=== PATIENT | female | born 1990 | race Caucasian/White ===

== ENCOUNTER 2016-11-08 21:41 | Emergency (ER) | payer OTHER ==
[2016-11-08 22:01] VITALS: RESP 18
--- NOTE | 2016-11-08 22:04 | ED ---
Skin/Abscess/FB HPI - General Chief complaint: Skin/Abscess/Foreign Body Stated complaint: Facial Swelling Time Seen by Provider: 11/08/16 21:57 Source: patient, RN notes reviewed Mode of arrival: ambulatory Limitations: no limitations - History of Present Illness Initial comments: 26-year-old female presents emergency Department chief complaint of right sided face pain and swelling and redness. Patient states yesterday her face felt we are today she woke up and her eye was swollen shut. Patient states she has pain extending from the upper jaw all the way to the upper eyebrow. Patient stated hurts when she moves right eye. Patient is a falls traumas or injuries with this. Patient denies any fever chills. Patient states she was concerned due to the fact of her symptoms so she thought that she should be evaluated. Patient denies any recent fever, chills, shortness of breath, chest pain, back pain, abdominal pain, nausea vomiting, numbness or tingling, dysuria or hematuria, constipation or diarrhea, headaches or visual changes, or any other current symptoms. - Related Data Previous Rx's Medication Instructions Recorded Albuterol Sulfate [Proair Hfa] 1 - 2 puff INHALATION Q4H PRN #1 10/16/15 inhaler Amoxicillin 500 mg PO Q8H #30 capsule 10/16/15 Benzonatate [Tessalon Perles] 100 mg PO TID #30 cap 10/16/15 predniSONE 50 mg PO DAILY #5 tab 10/16/15 Clindamycin [Cleocin] 450 mg PO Q8HR #90 capsule 11/08/16 diphenhydrAMINE [Benadryl] 50 mg PO HS PRN #5 capsule 11/08/16 Allergies Allergy/AdvReac Type Severity Reaction Status Date / Time sulfamethoxazole Allergy Nausea & Verified 11/08/16 21:59 [From Bactrim] Vomiting & Diarrhea trimethoprim [From Bactrim] Allergy Nausea & Verified 11/08/16 21:59 Vomiting & Diarrhea doxycycline AdvReac Nausea & Verified 11/08/16 21:59 Vomiting & Diarrhea Review of Systems ROS Statement: Those systems with pertinent positive or pertinent negative responses have been documented in the HPI. ROS Other: All systems not noted in ROS Statement are negative. Past Medical History Past Medical History: Asthma Additional Past Medical History / Comment(s): ASTHMA A CHILD- EXERCISE INDUCED, JUST HAD BABY BOY 10/22/14 History of Any Multi-Drug Resistant Organisms: None Reported Past Surgical History: No Surgical Hx Reported Additional Past Anesthesia/Blood Transfusion Reaction / Comment(s): PT HAD PROBLEMS WITH EPIDERAL- MADE BP DROP,KEPT PASSING OUT Past Psychological History: Depression Smoking Status: Current every day smoker Past Alcohol Use History: None Reported Additional Past Alcohol Use History / Comment(s): STARTED SMOKING @ AGE 20(2009 ) 10 CIGARETTES A DAY Past Drug Use History: None Reported - Past Family History Mother Family Medical History: Cancer Additional Family Medical History / Comment(s): COLON CA Father Family Medical History: Diabetes Mellitus, Hyperlipidemia, Hypertension General Exam Limitations: no limitations General appearance: alert, in no apparent distress Head exam: Present: atraumatic, normocephalic. Absent: normal inspection ( patient appears to have erythema to the right side of the face surrounding the right eye and upper cheek. Tender to touch.) Eye exam: Present: normal appearance, PERRL, EOMI, conjunctival injection (On right side of face), periorbital swelling, periorbital tenderness. Absent: scleral icterus Pupils: Present: normal accommodation ENT exam: Present: normal exam, mucous membranes moist Expanded Teeth exam: Present: dental tenderness # (Along the right upper jaw). Absent: gingival enlargement Neck exam: Present: normal inspection. Absent: tenderness, meningismus, lymphadenopathy Respiratory exam: Present: normal lung sounds bilaterally. Absent: respiratory distress, wheezes, rales, rhonchi, stridor Cardiovascular Exam: Present: regular rate, normal rhythm, normal heart sounds. Absent: systolic murmur, diastolic murmur, rubs, gallop, clicks Neurological exam: Present: alert, oriented X3 Psychiatric exam: Present: normal affect, normal mood Skin exam: Present: warm, dry, intact, normal color. Absent: rash Course Vital Signs 11/08/16 21:56 Temperature 97.6 F Pulse Rate 94 Respiratory 18 Rate Blood Pressure 117/77 O2 Sat by Pulse 100 Oximetry Medical Decision Making - Medical Decision Making 26-year-old female presents emergency Department with a chief complaint of right eye swelling and pain. Patient's blood work is reviewed. Patient with lamp examination shows no injury to the exterior right eyeball. At this time ct shows facial cellulitis. We will start patient on clindamycin. We discussed follow-up with her doctor and return parameters and all her questions. She stated that she understood all questions have been answered. She will be discharged home. - Lab Data Result diagrams: 11/08/16 22:08 11/08/16 22:08 Lab Results 11/08/16 11/08/16 Range/Units 22:08 22:08 WBC 9.5 (3.8-10.6) k/uL RBC 4.93 (3.80-5.40) m/uL Hgb 15.5 (11.4-16.0) gm/dL Hct 46.5 H (34.0-46.0) % MCV 94.2 (80.0-100.0) fL MCH 31.5 (25.0-35.0) pg MCHC 33.5 (31.0-37.0) g/dL RDW 12.8 (11.5-15.5) % Plt Count 350 (150-450) k/uL Neutrophils % 59 % Lymphocytes % 31 % Monocytes % 3 % Eosinophils % 5 % Basophils % 1 % Neutrophils # 5.6 (1.3-7.7) k/uL Lymphocytes # 2.9 (1.0-4.8) k/uL Monocytes # 0.3 (0-1.0) k/uL Eosinophils # 0.5 (0-0.7) k/uL Basophils # 0.0 (0-0.2) k/uL Sodium 141 (137-145) mmol/L Potassium 4.3 (3.5-5.1) mmol/L Chloride 106 (98-107) mmol/L Carbon Dioxide 25 (22-30) mmol/L Anion Gap 10 mmol/L BUN 10 (7-17) mg/dL Creatinine 0.67 (0.52-1.04) mg/dL Est GFR (MDRD) Af Amer >60 (>60 ml/min/1.73 sqM) Est GFR (MDRD) Non-Af >60 (>60 ml/min/1.73 sqM) Glucose 97 (74-99) mg/dL Calcium 9.9 (8.4-10.2) mg/dL Total Bilirubin 0.4 (0.2-1.3) mg/dL AST 29 (14-36) U/L ALT 41 (9-52) U/L Alkaline Phosphatase 96 (38-126) U/L Total Protein 8.3 H (6.3-8.2) g/dL Albumin 4.9 (3.5-5.0) g/dL - Radiology Data Radiology results: report reviewed, image reviewed Disposition Clinical Impression: Facial cellulitis Disposition: HOME SELF-CARE Condition: Stable Instructions: Cellulitis (ED) Additional Instructions: Please use medication as discussed. Please follow up with family doctor if symptoms have not improved over the next two days. Please return to the emergency room if your symptoms increase or worsen or for any other concerns. Prescriptions: Clindamycin [Cleocin] 450 mg PO Q8HR #90 capsule diphenhydrAMINE [Benadryl] 50 mg PO HS PRN #5 capsule PRN Reason: Itching Referrals: Reagan Aldana MD [Primary Care Provider] - 1-2 days Time of Disposition: 22:59
[2016-11-08] MEDS ORDERED: KETOROLAC 30 MG/ML 1 ML VIAL IVP STA (22:11)
[2016-11-08 22:24] LABS: Basophils % (A) 1 %; CH 31.7; CHCM 33.8; Eosinophils # (A) 0.5 k/uL (0-0.7); Eosinophils % (A) 5 %; HCT 46.5 % (34.0-46.0); HDW 2.37; HGB 15.5 gm/dL (11.4-16.0); Luc # (Auto) 0.14; Luc % (Auto) 2; Lymphocytes # (A) 2.9 k/uL (1.0-4.8); Lymphocytes % (A) 31 %; MCH 31.5 pg (25.0-35.0); MCHC 33.5 g/dL (31.0-37.0); MCV 94.2 fL (80.0-100.0); Mean Platelet Volume 6.8; Monocytes # (A) 0.3 k/uL (0-1.0); Monocytes % (A) 3 %; Neutrophils # (A) 5.6 k/uL (1.3-7.7); Neutrophils % (A) 59 %; RBC 4.93 m/uL (3.80-5.40); RDW 12.8 % (11.5-15.5); WBC 9.5 k/uL (3.8-10.6); WBC (Perox) 8.97
[2016-11-08 22:34] LABS: ALT 41 U/L (9-52); AST 29 U/L (14-36); Alkaline Phosphatase 96 U/L (38-126); Anion Gap 10 mmol/L; Blood Urea Nitrogen 10 mg/dL (7-17); Calcium 9.9 mg/dL (8.4-10.2); Carbon Dioxide 25 mmol/L (22-30); Chloride 106 mmol/L (98-107); Glucose 97 mg/dL (74-99); Non-African American GFR(MDRD) >60 (>60 ml/min/1.73 sqM); Potassium 4.3 mmol/L (3.5-5.1); Sodium 141 mmol/L (137-145); Total Bilirubin 0.4 mg/dL (0.2-1.3); Total Protein 8.3 g/dL (6.3-8.2)
--- NOTE | 2016-11-08 22:54 | CT ---
EXAM: CT Maxillofacial Without Intravenous Contrast CLINICAL HISTORY: Reason: Pain. Right sided orbital and facial swelling starting today. No known injury. TECHNIQUE: Axial computed tomography images of the face without intravenous contrast. CTDI is 32.1 mGy and DLP is 738 mGy-cm. This CT exam was performed using one or more of the following dose reduction techniques: automated exposure control, adjustment of the mA and/or kV according to patient size, and/or use of iterative reconstruction technique. COMPARISON: No relevant prior studies available. FINDINGS: Bones/joints: No acute fracture. Soft tissues: Right facial soft tissue stranding with suggestion of mild haziness in the adjacent right parotid gland. Prominent lymph node in this region. No organized fluid collections. Orbits: Unremarkable. Submandibular/parotid glands: See above. Sinuses: Minimal sphenoid and maxillary sinus mucosal thickening. No air-fluid levels. IMPRESSION: Right facial soft tissue stranding with suggestion of mild haziness in the adjacent right parotid gland. Differential considerations include cellulitis, parotiditis, or other inflammatory/infectious process. Traumatic etiology is presumed less likely given no history of injury.
[2016-11-08] MEDS ORDERED: diphenhydrAMINE 50 MG/ML 1 ML VIAL IVP STA (23:00)
[2016-11-08] MEDS ORDERED: CLINDAMYCIN 150 MG CAP PO STA (23:00)
[2016-11-08] MEDS ORDERED: methylPREDNISolone SOD SUCCI 125 MG/2 ML VIAL IV STA (23:00)
[2016-11-08 23:48] VITALS: BP 129/81; PULSE 88; TEMP 99
== END 2016-11-08 23:48 | disposition home or self-care (01) ==
LOC: EC 21:41
DX: L03.211 Cellulitis of face (principal); F17.210 Nicotine dependence, cigarettes, uncomplicated; Z88.2 Allergy status to sulfonamides; Z88.1 Allergy status to other antibiotic agents
CPT/HCPCS: 36415; 80053; 85025; 87040; 70486; 99284; 96374; 96375 ×2; J1200; J2930; J1885

== ENCOUNTER 2016-11-10 11:07 | Emergency (ER) | payer OTHER ==
--- NOTE | 2016-11-10 12:30 | ED ---
General Adult HPI - General Chief complaint: Recheck/Abnormal Lab/Rx Stated complaint: Revisit facial swelling Time Seen by Provider: 11/10/16 12:17 Source: patient Mode of arrival: ambulatory Limitations: no limitations - History of Present Illness Initial comments: This 26-year-old white female presents with a complaint of some right facial swelling. This is been going on for several days. She states that she was seen in the emergency department 2 days ago. She states that she was diagnosed with cellulitis and placed on Benadryl as well as clindamycin. She had a computed tomography scan of her face at that time. This showed some inflammatory changes present to the right face with suspected parotiditis. She denies any relief of her symptomatology since last visit. She denies any dental pain. There's been no fever or chills. She does complain of some slight redness to her right eye. There's been no injuries are visual abnormalities. No other complaints or modifying factors. - Related Data Previous Rx's Medication Instructions Recorded Albuterol Sulfate [Proair Hfa] 1 - 2 puff INHALATION Q4H PRN #1 10/16/15 inhaler Amoxicillin 500 mg PO Q8H #30 capsule 10/16/15 Benzonatate [Tessalon Perles] 100 mg PO TID #30 cap 10/16/15 predniSONE 50 mg PO DAILY #5 tab 10/16/15 Clindamycin [Cleocin] 450 mg PO Q8HR #90 capsule 11/08/16 diphenhydrAMINE [Benadryl] 50 mg PO HS PRN #5 capsule 11/08/16 Amoxic-Pot Clav 875-125Mg 1 each PO Q12HR #20 tablet 11/10/16 [Augmentin Xr 875-125] predniSONE 20 mg PO BID #10 tab 11/10/16 Allergies Allergy/AdvReac Type Severity Reaction Status Date / Time sulfamethoxazole Allergy Nausea & Verified 11/08/16 21:59 [From Bactrim] Vomiting & Diarrhea trimethoprim [From Bactrim] Allergy Nausea & Verified 11/08/16 21:59 Vomiting & Diarrhea doxycycline AdvReac Nausea & Verified 11/08/16 21:59 Vomiting & Diarrhea Review of Systems ROS Statement: Those systems with pertinent positive or pertinent negative responses have been documented in the HPI. ROS Other: All systems not noted in ROS Statement are negative. Past Medical History Past Medical History: Asthma Additional Past Medical History / Comment(s): ASTHMA A CHILD- EXERCISE INDUCED, JUST HAD BABY BOY 10/22/14 History of Any Multi-Drug Resistant Organisms: None Reported Past Surgical History: No Surgical Hx Reported Additional Past Anesthesia/Blood Transfusion Reaction / Comment(s): PT HAD PROBLEMS WITH EPIDERAL- MADE BP DROP,KEPT PASSING OUT Past Psychological History: Depression Smoking Status: Current every day smoker Past Alcohol Use History: None Reported Additional Past Alcohol Use History / Comment(s): STARTED SMOKING @ AGE 20(2009 ) 10 CIGARETTES A DAY Past Drug Use History: None Reported - Past Family History Mother Family Medical History: Cancer Additional Family Medical History / Comment(s): COLON CA Father Family Medical History: Diabetes Mellitus, Hyperlipidemia, Hypertension General Exam Limitations: no limitations General appearance: alert, in no apparent distress Head exam: Present: atraumatic, normocephalic Eye exam: Present: PERRL, EOMI, conjunctival injection. Absent: scleral icterus , nystagmus, periorbital swelling, periorbital tenderness Pupils: Present: normal accommodation. Absent: irregular, unequal ENT exam: Present: other (There is some mild right facial swelling noted. There is tenderness right over the parotid gland with associated mild swelling. The oropharynx is clear. There is no dental tenderness or intraoral inflammation. Posterior oropharynx is clear.) Neck exam: Present: normal inspection. Absent: tenderness, meningismus Course Vital Signs 11/10/16 11:20 Temperature 98.3 F Pulse Rate 98 Respiratory 18 Rate Blood Pressure 130/74 O2 Sat by Pulse 97 Oximetry Medical Decision Making - Medical Decision Making The patient was seen and examined. Old records were reviewed. It appears that she likely does have a parotiditis. It is felt as though she would benefit from a change in her antibiotics. She also states that she had significant relief with steroids on last visit. The swelling apparently went down significantly but then did come back. She's given Solu-Medrol 125 mg IM will be placed on steroids as well. It is felt as though she may benefit from follow -up with ENT. She lives in no apparent distress. Disposition Clinical Impression: Parotiditis, Right conjunctivitis, Facial swelling, Facial cellulitis Disposition: HOME SELF-CARE Condition: Good Instructions: Sialoadenitis (ED), Cellulitis (ED) Additional Instructions: Please stop the Benadryl and clindamycin. You also may take Motrin and/or Tylenol if needed for pain. Prescriptions: Amoxic-Pot Clav 875-125Mg [Augmentin Xr 875-125] 1 each PO Q12HR #20 tablet predniSONE 20 mg PO BID #10 tab Referrals: Reagan Aldana MD [Primary Care Provider] - 1-2 days Job Quintana MD [STAFF PHYSICIAN] - 1-2 days Time of Disposition: 12:36
[2016-11-10] MEDS ORDERED: methylPREDNISolone SOD SUCCI 125 MG/2 ML VIAL IM STA (12:32)
[2016-11-10 12:45] VITALS: BP 139/60; PULSE 77; RESP 16; TEMP 97.4
== END 2016-11-10 12:52 | disposition home or self-care (01) ==
LOC: EC 11:07
DX: K11.20 Sialoadenitis, unspecified (principal); H10.9 Unspecified conjunctivitis; L03.211 Cellulitis of face; F17.210 Nicotine dependence, cigarettes, uncomplicated; Z88.1 Allergy status to other antibiotic agents; Z88.2 Allergy status to sulfonamides
CPT/HCPCS: 99283; 96372; J2930

== ENCOUNTER 2017-10-29 14:44 | Emergency (ER) | payer OTHER ==
[2017-10-29 14:59] VITALS: TEMP 97.8
[2017-10-29] MEDS ORDERED: SODIUM CHLORIDE 0.9% 1,000 ML IV STA (15:13)
--- NOTE | 2017-10-29 15:15 | ED ---
General Adult HPI - General Chief complaint: Abdominal Pain Stated complaint: flank pain Time Seen by Provider: 10/29/17 14:57 Source: patient, RN notes reviewed Mode of arrival: ambulatory Limitations: no limitations - History of Present Illness Initial comments: Patient 27-year-old female presenting to the emergency room today with a chief complaint of left flank pain over the last 2 days. Patient does admit to a history of kidney infections and states his symptoms feel similar to her. Patient states that she's had increased pain in the left flank. She does admit to some pressure with urination. She does admit some discomfort at times. Patient states had some chills but no recorded temperatures. Denies any other complaints. Patient denies any recent shortness of breath, chest pain, numbness or tingling, constipation or diarrhea, headaches or visual changes, or any other complaints. - Related Data Previous Rx's Medication Instructions Recorded diphenhydrAMINE [Benadryl] 50 mg PO HS PRN #5 capsule 11/08/16 Hydrocodone/Acetaminophen [[place] 1 each PO Q6HR PRN #12 tab 10/29/17 5-325] Ibuprofen [Motrin] 600 mg PO Q6HR PRN #40 day 10/29/17 Ondansetron Odt [Zofran ODT] 4 mg PO Q8HR PRN #20 tab 10/29/17 Tamsulosin [Flomax] 0.4 mg PO DAILY #10 cap 10/29/17 Allergies Allergy/AdvReac Type Severity Reaction Status Date / Time sulfamethoxazole Allergy Nausea & Verified 10/29/17 15:01 [From Bactrim] Vomiting & Diarrhea trimethoprim [From Bactrim] Allergy Nausea & Verified 10/29/17 15:01 Vomiting & Diarrhea doxycycline AdvReac Nausea & Verified 10/29/17 15:01 Vomiting & Diarrhea Review of Systems ROS Statement: Those systems with pertinent positive or pertinent negative responses have been documented in the HPI. ROS Other: All systems not noted in ROS Statement are negative. Past Medical History Past Medical History: Asthma Additional Past Medical History / Comment(s): ASTHMA A CHILD- EXERCISE INDUCED, JUST HAD BABY BOY 10/22/14, Kidney Infection History of Any Multi-Drug Resistant Organisms: None Reported Past Surgical History: No Surgical Hx Reported Additional Past Anesthesia/Blood Transfusion Reaction / Comment(s): PT HAD PROBLEMS WITH EPIDERAL- MADE BP DROP,KEPT PASSING OUT Past Psychological History: Depression Smoking Status: Current every day smoker Past Alcohol Use History: None Reported Past Drug Use History: None Reported - Past Family History Mother Family Medical History: Cancer Additional Family Medical History / Comment(s): COLON CA Father Family Medical History: Diabetes Mellitus, Hyperlipidemia, Hypertension General Exam - General Exam Comments Initial Comments: General: The patient is awake and alert, in no distress, and does not appear acutely ill. Eye: Pupils are equal, round and reactive to light, extra-ocular movements are intact. No nystagmus. There is normal conjunctiva bilaterally. No signs of icterus. Ears, nose, mouth and throat: There are moist mucous membranes and no oral lesions. Neck: The neck is supple, there is no tenderness or JVD. Cardiovascular: There is a regular rate and rhythm. No murmur, rub or gallop is appreciated. Respiratory: Lungs are clear to auscultation, respirations are non-labored, breath sounds are equal. No wheezes, stridor, rales, or rhonchi. Gastrointestinal: Soft, non-distended, non-tender abdomen without masses or organomegaly noted. There is no rebound or guarding present. No CVA tenderness. Musculoskeletal: Normal ROM, no tenderness. Strength 5/5. Sensation intact. Neurological: A&O x 3. CN II-XII intact, There are no obvious motor or sensory deficits. Coordination appears grossly intact. Speech is normal. Skin: Skin is warm and dry and no rashes or lesions are noted. Psychiatric: Cooperative, appropriate mood & affect, normal judgment. Limitations: no limitations Course Vital Signs 10/29/17 14:54 Temperature 97.8 F Pulse Rate 81 Respiratory 16 Rate Blood Pressure 117/75 O2 Sat by Pulse 97 Oximetry Medical Decision Making - Medical Decision Making Patient's CT of the abdomen and pelvis does show 3 mm left mid ureteral auscultation with mild obstructive uropathy. Patient's labs been reviewed. First set of chemistry labs were reviewed and shows multiple abnormalities. This was drawn from a second site above the IV site while was running. Repeat labs obtained. Patient's CAT scan is positive for kidney stone 3 mm left-sided stone. Results were discussed with patient. At time patient will be discharged home. Patient will be given prescription for pain medication, Flomax. Advised follow-up the family doctor and urologist over the next 2 days. Advised return if any symptoms increase worsen. - Lab Data Result diagrams: 10/29/17 15:23 10/29/17 17:34 Lab Results 10/29/17 10/29/17 10/29/17 Range/Units 15:23 15:23 15:23 WBC 5.6 (3.8-10.6) k/uL RBC 4.72 (3.80-5.40) m/uL Hgb 14.2 (11.4-16.0) gm/dL Hct 42.7 (34.0-46.0) % MCV 90.5 (80.0-100.0) fL MCH 30.1 (25.0-35.0) pg MCHC 33.3 (31.0-37.0) g/dL RDW 13.7 (11.5-15.5) % Plt Count 140 L (150-450) k/uL Neutrophils % 57 % Lymphocytes % 32 % Monocytes % 5 % Eosinophils % 4 % Basophils % 1 % Neutrophils # 3.2 (1.3-7.7) k/uL Lymphocytes # 1.8 (1.0-4.8) k/uL Monocytes # 0.3 (0-1.0) k/uL Eosinophils # 0.2 (0-0.7) k/uL Basophils # 0.0 (0-0.2) k/uL Sodium (137-145) mmol/L Potassium (3.5-5.1) mmol/L Chloride (98-107) mmol/L Carbon Dioxide (22-30) mmol/L Anion Gap mmol/L BUN (7-17) mg/dL Creatinine (0.52-1.04) mg/dL Est GFR (CKD-EPI)AfAm (>60 ml/min/1.73 sqM) Est GFR (CKD-EPI)NonAf (>60 ml/min/1.73 sqM) Glucose (74-99) mg/dL Calcium (8.4-10.2) mg/dL Total Bilirubin (0.2-1.3) mg/dL AST (14-36) U/L ALT (9-52) U/L Alkaline Phosphatase (38-126) U/L Total Protein (6.3-8.2) g/dL Albumin (3.5-5.0) g/dL Amylase (30-110) U/L Lipase (23-300) U/L Urine Color Red Urine Appearance Turbid H (Clear) Urine pH 6.0 (5.0-8.0) Ur Specific [place] 1.028 (1.001-1.035) Urine Protein 2+ H (Negative) Urine Glucose (UA) Negative (Negative) Urine Ketones Trace H (Negative) Urine Blood Large H (Negative) Urine Nitrite Negative (Negative) Urine Bilirubin Negative (Negative) Urine Urobilinogen 2.0 (<2.0) mg/dL Ur Leukocyte Esterase Small H (Negative) Urine RBC >182 H (0-5) /hpf Ur Squamous Epith Cells 28 H (0-4) /hpf Amorphous Sediment Rare H (None) /hpf Urine Bacteria Few H (None) /hpf Urine Mucus Many H (None) /hpf Urine HCG, Qual Not Detected (Not Detectd) 10/29/17 10/29/17 Range/Units 16:06 17:34 WBC (3.8-10.6) k/uL RBC (3.80-5.40) m/uL Hgb (11.4-16.0) gm/dL Hct (34.0-46.0) % MCV (80.0-100.0) fL MCH (25.0-35.0) pg MCHC (31.0-37.0) g/dL RDW (11.5-15.5) % Plt Count (150-450) k/uL Neutrophils % % Lymphocytes % % Monocytes % % Eosinophils % % Basophils % % Neutrophils # (1.3-7.7) k/uL Lymphocytes # (1.0-4.8) k/uL Monocytes # (0-1.0) k/uL Eosinophils # (0-0.7) k/uL Basophils # (0-0.2) k/uL Sodium 147 H 144 (137-145) mmol/L Potassium 2.4 L* 4.4 (3.5-5.1) mmol/L Chloride 123 H* 108 H (98-107) mmol/L Carbon Dioxide 16 L 25 (22-30) mmol/L Anion Gap 8 11 mmol/L BUN 7 11 (7-17) mg/dL Creatinine 0.40 L 0.69 (0.52-1.04) mg/dL Est GFR (CKD-EPI)AfAm >90 >90 (>60 ml/min/1.73 sqM) Est GFR (CKD-EPI)NonAf >90 >90 (>60 ml/min/1.73 sqM) Glucose 59 L 80 (74-99) mg/dL Calcium 5.7 L* 9.2 (8.4-10.2) mg/dL Total Bilirubin <0.1 L 0.3 (0.2-1.3) mg/dL AST 15 26 (14-36) U/L ALT 32 34 (9-52) U/L Alkaline Phosphatase 43 71 (38-126) U/L Total Protein 4.2 L 6.7 (6.3-8.2) g/dL Albumin 2.2 L 4.0 (3.5-5.0) g/dL Amylase <30 L (30-110) U/L Lipase 16 L (23-300) U/L Urine Color Urine Appearance (Clear) Urine pH (5.0-8.0) Ur Specific Clark (1.001-1.035) Urine Protein (Negative) Urine Glucose (UA) (Negative) Urine Ketones (Negative) Urine Blood (Negative) Urine Nitrite (Negative) Urine Bilirubin (Negative) Urine Urobilinogen (<2.0) mg/dL Ur Leukocyte Esterase (Negative) Urine RBC (0-5) /hpf Ur Squamous Epith Cells (0-4) /hpf Amorphous Sediment (None) /hpf Urine Bacteria (None) /hpf Urine Mucus (None) /hpf Urine HCG, Qual (Not Detectd) Disposition Clinical Impression: Kidney stone Disposition: HOME SELF-CARE Condition: Good Instructions: Kidney Stones (ED) Additional Instructions: Please use medication as discussed. Please follow-up with family doctor in the next 2 days of symptoms have not improved. Please return to emergency room if the symptoms increase or worsen or for any other concerns. Prescriptions: Hydrocodone/Acetaminophen [[place] 5-325] 1 each PO Q6HR PRN #12 tab PRN Reason: Pain Ibuprofen [Motrin] 600 mg PO Q6HR PRN #40 day PRN Reason: Pain Ondansetron Odt [Zofran ODT] 4 mg PO Q8HR PRN #20 tab PRN Reason: Nausea Tamsulosin [Flomax] 0.4 mg PO DAILY #10 cap Is patient prescribed a controlled substance at d/c from ED?: Yes When asked, does pt state using other controlled substances?: No If prescribed controlled substance>3 days was MAPS reviewed?: Prescribed <3 Days If opioid is for acute pain is fill amount 7 days or less?: No Referrals: Reagan Aldana MD [Primary Care Provider] - 1-2 days Time of Disposition: 18:35
[2017-10-29 15:40] LABS: Amorphous Sediment,Urine Rare /hpf; Appearance,Urine Turbid (Clear); Bacteria,Urine Few /hpf; Bilirubin,Urine Negative (Negative); Blood,Urine Large (Negative); Color,Urine Red; Glucose,Urine (UA) Negative (Negative); Ketones,Urine Trace (Negative); Leukocyte Esterase,Urine Small (Negative); Mucus,Urine Many /hpf; Nitrite,Urine Negative (Negative); Protein,Urine 2+ (Negative); RBC,Urine >182 /hpf (0-5); Specific Gravity,Urine 1.028 (1.001-1.035); Squamous Epithelial Cell,Urine 28 /hpf (0-4)
[2017-10-29 15:48] LABS: Basophils % (A) 1 %; Eosinophils # (A) 0.2 k/uL (0-0.7); Eosinophils % (A) 4 %; HCT 42.7 % (34.0-46.0); HGB 14.2 gm/dL (11.4-16.0); Lymphocytes # (A) 1.8 k/uL (1.0-4.8); Lymphocytes % (A) 32 %; MCH 30.1 pg (25.0-35.0); MCHC 33.3 g/dL (31.0-37.0); MCV 90.5 fL (80.0-100.0); Mean Platelet Volume 8.1; Monocytes # (A) 0.3 k/uL (0-1.0); Monocytes % (A) 5 %; Neutrophils # (A) 3.2 k/uL (1.3-7.7); Neutrophils % (A) 57 %; Platelet Count 140 k/uL (150-450); RBC 4.72 m/uL (3.80-5.40); RDW 13.7 % (11.5-15.5); WBC 5.6 k/uL (3.8-10.6)
--- NOTE | 2017-10-29 15:52 | XR ---
EXAMINATION TYPE: XR KUB DATE OF EXAM: 10/29/2017 3:37 PM CLINICAL HISTORY: Abdominal pain. History of pyelonephritis. TECHNIQUE: Single upright image of the abdomen is obtained. COMPARISON: None. FINDINGS: A moderate amount retained colonic stool is seen within the nondilated colon. No small or l arge bowel dilatation. There is no pneumoperitoneum or abnormal calcification appreciated. Surgical probable tubal ligation clips are seen within the right midline pelvis and left upper hemipelvis. The lung bases are clear and the osseous structures are intact. IMPRESSION: Moderate amount retained colonic stool in an overall nonobstructive bowel gas pattern.
[2017-10-29 16:25] LABS: ALT 32 U/L (9-52); AST 15 U/L (14-36); Albumin 2.2 g/dL (3.5-5.0); Alkaline Phosphatase 43 U/L (38-126); Amylase <30 U/L (30-110); Anion Gap 8 mmol/L; Blood Urea Nitrogen 7 mg/dL (7-17); Carbon Dioxide 16 mmol/L (22-30); Glucose 59 mg/dL (74-99); Lipase 16 U/L (23-300); Sodium 147 mmol/L (137-145); Total Bilirubin <0.1 mg/dL (0.2-1.3); Total Protein 4.2 g/dL (6.3-8.2)
[2017-10-29 16:34] LABS: Calcium 5.7 mg/dL (8.4-10.2); Chloride 123 mmol/L (98-107); Potassium 2.4 mmol/L (3.5-5.1)
[2017-10-29] MEDS ORDERED: POTASSIUM CHLORIDE ER 20 MEQ TAB.ER PO STA (16:47)
[2017-10-29] MEDS ORDERED: POTASSIUM CHLORIDE 20 MEQ in WATER FOR INJECTION 1 100ML.BAG IVPB STA (16:56)
--- NOTE | 2017-10-29 17:46 | CT ---
EXAMINATION TYPE: CT abdomen pelvis wo con DATE OF EXAM: 10/29/2017 HISTORY: Left flank pain CT DLP: 583.1 mGycm Automated exposure control for dose reduction was used. TECHNIQUE: Helical acquisition of images was performed from the lung bases through the pelvis. FINDINGS: LUNG BASES: No significant abnormality is appreciated. LIVER/GB: No significant abnormality is appreciated. PANCREAS: No significant abnormality is seen. SPLEEN: No significant abnormality is seen. ADRENALS: No significant abnormality is seen. KIDNEYS, URETERS, AND BLADDER: There is a 3 mm left mid ureteral calcification at the L3-4 level; thi s is associated mild hydronephrosis and hydroureter. There is no enlargement of the left kidney. The kidneys and ureters and bladder are otherwise unremarkable PERITONEAL CAVITY: Small volume of simple appearing dependent fluid in the cul-de-sac, likely physiol ogic. RETROPERITONEAL ADENOPATHY: None visualized REPRODUCTIVE ORGANS: No significant abnormality is seen PELVIC ADENOPATHY: None visualized. OSSEOUS STRUCTURES: No significant abnormality is seen. BOWEL: No significant abnormality is seen. IMPRESSION: 3 MM LEFT MID URETERAL CALCIFICATION WITH MILD OBSTRUCTIVE UROPATHY.
[2017-10-29 18:08] LABS: ALT 34 U/L (9-52); AST 26 U/L (14-36); Alkaline Phosphatase 71 U/L (38-126); Anion Gap 11 mmol/L; Blood Urea Nitrogen 11 mg/dL (7-17); Calcium 9.2 mg/dL (8.4-10.2); Carbon Dioxide 25 mmol/L (22-30); Chloride 108 mmol/L (98-107); Glucose 80 mg/dL (74-99); Potassium 4.4 mmol/L (3.5-5.1); Sodium 144 mmol/L (137-145); Total Bilirubin 0.3 mg/dL (0.2-1.3); Total Protein 6.7 g/dL (6.3-8.2)
[2017-10-29] MEDS ORDERED: KETOROLAC 30 MG/ML 1 ML VIAL IVP STA (18:13)
[2017-10-29 18:35] VITALS: BP 104/75; PULSE 70; RESP 18
== END 2017-10-29 18:58 | disposition home or self-care (01) ==
LOC: EC 14:44
DX: N20.0 Calculus of kidney (principal); N13.8 Other obstructive and reflux uropathy; F17.200 Nicotine dependence, unspecified, uncomplicated; Z87.440 Personal history of urinary (tract) infections; Z88.1 Allergy status to other antibiotic agents; Z88.2 Allergy status to sulfonamides
CPT/HCPCS: 36415; 80053; 82150; 83690; 85025; 81001; 81025; 87086; 74018; 74176; 99284; 96374; 96361; J1885

== ENCOUNTER 2017-10-30 01:52 | Emergency (ER) | payer OTHER ==
[2017-10-30 01:56] VITALS: RESP 18; TEMP 98.7
[2017-10-30] MEDS ORDERED: KETOROLAC 60 MG/2 ML VIAL IM STA (02:49)
[2017-10-30] MEDS ORDERED: HYDROcodone/APAP 10-325MG 1 EACH TAB PO ONE (02:49)
[2017-10-30] MEDS ORDERED: ONDANSETRON ODT 4 MG TAB PO STA (02:49)
[2017-10-30 03:11] VITALS: BP 141/100; PULSE 94
[2017-10-30] MEDS ORDERED: TAMSULOSIN 0.4 MG CAP.ER.24H PO STA (03:43)
[2017-10-30] MEDS ORDERED: ACET/COD 300 MG/30 MG STARTER PACK 6 TAB BTL PO STA (03:45)
--- NOTE | 2017-10-30 03:45 | ED ---
Female Urogenital HPI - General Chief complaint: Urogenital Stated complaint: Kidney Stone, revisit Time Seen by Provider: 10/30/17 02:22 Source: patient, RN notes reviewed, old records reviewed Mode of arrival: ambulatory Limitations: no limitations - History of Present Illness Initial comments: 27-year-old female presents for reevaluation. Diagnosed with a left ureter stone earlier today. She did not get her pain medication. She states that the holiday her medicines cannot be filled. Patient states that she's been having severe left flank pain for the past two hours, few episodes of nausea and vomiting. Previously diagnosed with a 3 mm left ureter stone earlier today. - Related Data Previous Rx's Medication Instructions Recorded diphenhydrAMINE [Benadryl] 50 mg PO HS PRN #5 capsule 11/08/16 Hydrocodone/Acetaminophen [[place] 1 each PO Q6HR PRN #12 tab 10/29/17 5-325] Ibuprofen [Motrin] 600 mg PO Q6HR PRN #40 day 10/29/17 Ondansetron Odt [Zofran ODT] 4 mg PO Q8HR PRN #20 tab 10/29/17 Tamsulosin [Flomax] 0.4 mg PO DAILY #10 cap 10/29/17 Ketorolac [Toradol] 10 mg PO Q6HR #15 tab 10/30/17 Allergies Allergy/AdvReac Type Severity Reaction Status Date / Time sulfamethoxazole Allergy Nausea & Verified 10/29/17 15:01 [From Bactrim] Vomiting & Diarrhea trimethoprim [From Bactrim] Allergy Nausea & Verified 10/29/17 15:01 Vomiting & Diarrhea doxycycline AdvReac Nausea & Verified 10/29/17 15:01 Vomiting & Diarrhea Review of Systems ROS Statement: Those systems with pertinent positive or pertinent negative responses have been documented in the HPI. ROS Other: All systems not noted in ROS Statement are negative. Past Medical History Past Medical History: Asthma Additional Past Medical History / Comment(s): ASTHMA A CHILD- EXERCISE INDUCED, JUST HAD BABY BOY 10/22/14, Kidney Infection History of Any Multi-Drug Resistant Organisms: None Reported Past Surgical History: No Surgical Hx Reported Additional Past Anesthesia/Blood Transfusion Reaction / Comment(s): PT HAD PROBLEMS WITH EPIDERAL- MADE BP DROP,KEPT PASSING OUT Past Psychological History: Depression Smoking Status: Current every day smoker Past Alcohol Use History: None Reported Past Drug Use History: None Reported - Past Family History Mother Family Medical History: Cancer Additional Family Medical History / Comment(s): COLON [place] Father Family Medical History: Diabetes Mellitus, Hyperlipidemia, Hypertension General Exam - General Exam Comments Initial Comments: Patient appears a moderate discomfort. Limitations: no limitations General appearance: alert, in no apparent distress Head exam: Present: atraumatic, normocephalic, normal inspection Eye exam: Present: normal appearance, PERRL, EOMI. Absent: scleral icterus, conjunctival injection, periorbital swelling ENT exam: Present: normal exam, mucous membranes moist Neck exam: Present: normal inspection. Absent: tenderness, meningismus, lymphadenopathy Respiratory exam: Present: normal lung sounds bilaterally. Absent: respiratory distress, wheezes, rales, rhonchi, stridor Cardiovascular Exam: Present: regular rate, normal rhythm, normal heart sounds. Absent: systolic murmur, diastolic murmur, rubs, gallop, clicks GI/Abdominal exam: Present: soft, tenderness (left lower abdominal pain), normal bowel sounds. Absent: distended, guarding, rebound, rigid Neurological exam: Present: alert, oriented X3, CN II-XII intact Psychiatric exam: Present: normal affect, normal mood Course Vital Signs 10/30/17 10/30/17 01:53 03:10 Temperature 98.7 F Pulse Rate 110 H 94 Respiratory 18 18 Rate Blood Pressure 143/73 141/100 O2 Sat by Pulse 99 100 Oximetry Medical Decision Making - Medical Decision Making 27 year old female, was reevaluated for left ureteral stone pain. she could not get her prescription pain medication filled. Patient was given PO feel [place] and IM Toradol. She reports immediate relief after the pain injections. Patient will be discharged with the Tylenol 3 starter pack and will write the patient for toradol all is well. Give him a dose of Flomax and she did not receive one earlier today. Discussed appropriate follow-up. All questions answered as were discussed. Patient leaves in no distress. Disposition Clinical Impression: Left ureteral calculus Disposition: HOME SELF-CARE Condition: Good Instructions: Flank Pain (ED) Additional Instructions: Patient is advised to take the medications as prescribed. Follow-up with primary care provider. Return to emergency department if any alarming signs or symptoms occur. Prescriptions: Ketorolac [Toradol] 10 mg PO Q6HR #15 tab Is patient prescribed a controlled substance at d/c from ED?: No When asked, does pt state using other controlled substances?: No If prescribed controlled substance>3 days was MAPS reviewed?: No If opioid is for acute pain is fill amount 7 days or less?: No If Rx opioid, was Start Talking consent form obtained?: No Referrals: Reagan Aldana MD [Primary Care Provider] - 1-2 days Time of Disposition: 03:44
== END 2017-10-30 03:58 | disposition home or self-care (01) ==
LOC: EC 01:52
DX: N20.1 Calculus of ureter (principal); F17.200 Nicotine dependence, unspecified, uncomplicated; Z88.1 Allergy status to other antibiotic agents; Z88.2 Allergy status to sulfonamides; Z88.8 Allergy status to other drugs, medicaments and biological substances
CPT/HCPCS: 99284; 96372; J1885

== ENCOUNTER 2022-01-31 23:04 | Emergency (ER) | payer OTHER ==
--- NOTE | 2022-02-01 04:55 | XR ---
EXAM: XR Right Foot Complete, 3 or More Views CLINICAL HISTORY: right foot pain with numbness, fall down stairs today TECHNIQUE: Frontal, lateral and oblique views of the right foot. COMPARISON: No relevant prior studies available. FINDINGS: Bones/joints: Unremarkable. No acute fracture. No dislocation. Soft tissues: Unremarkable. No radiopaque foreign body. IMPRESSION: No evidence of acute fracture or dislocation. There is no subcutaneous air or radiopaque foreign body.
--- NOTE | 2022-02-01 04:58 | XR ---
EXAM: XR Right Ankle Complete, 3 or More Views CLINICAL HISTORY: right ankle pain with numbness, fall down stairs today TECHNIQUE: Frontal, lateral and oblique views of the right ankle. COMPARISON: No relevant prior studies available. FINDINGS: Bones/joints: Unremarkable. No acute fracture. No dislocation. Soft tissues: There is mild soft tissue swelling about the lateral malleolus. IMPRESSION: No evidence of acute fracture or dislocation. There is no subcutaneous air or radiopaque foreign body.
[2022-02-01] MEDS ORDERED: ACETAMINOPHEN TAB 500 MG TAB ONE (08:31)
[2022-02-01] MEDS ORDERED: KETOROLAC 15 MG/ML 1 ML VIAL ONE (08:31)
== END 2022-02-01 03:34 | disposition home or self-care (01) ==
LOC: EC 23:04
DX: S93.401A Sprain of unspecified ligament of right ankle, initial encounter (principal); W19.XXXA Unspecified fall, initial encounter
CPT/HCPCS: 99283

== ENCOUNTER → 2022-09-20 | Outpatient (CLI) | payer OTHER ==
--- NOTE | 2022-09-20 13:50 | US ---
EXAMINATION TYPE: US transvaginal DATE OF EXAM: 09/20/2022 COMPARISON: NONE CLINICAL INDICATION: Female, 32 years old with history of N94.6 DYSMENORRHEA,N92.0 EXCESSIVE AND FREQ UENT ME; Pt states heavy, abnormal menses x 6 years TECHNIQUE: Transvaginal (TV). Transvaginal sonographic images of the pelvis were acquired. Date of LMP: 08/18/2022 EXAM MEASUREMENTS: Uterus: 9.9 x 5.2 x 5.7 cm Endometrial Stripe: 1.4 cm Right Ovary: 3.4 x 2.5 x 2.9 cm Left Ovary: 3.1 x 2.8 x 2.2 cm 1. Uterus: Anteverted wnl 2. Endometrium: Upper limits of normal 3. Right Ovary: Small calcifications within ovary, otherwise appeared wnl 4. Left Ovary: Small calcifications within ovary, small exophytic follicle= 1.7 x 1.5 x 1.9 cm 5. Bilateral Adnexa: wnl 6. Posterior cul-de-sac: Small amount of free fluid IMPRESSION: 1. Small left ovarian cyst. 2. Small amount of free fluid within the cul-de-sac. This could be physiologic. 3. Endometrial stripe is 1.4 cm. Cholelithiasis with the timing of the patient's menstrual cycle.
== END | disposition home or self-care (01) ==
LOC: RADUSWWP 12:12
PROVIDERS: ATTEND Family Medicine
DX: K80.20 Calculus of gallbladder without cholecystitis without obstruction (principal); N83.202 Unspecified ovarian cyst, left side; N94.6 Dysmenorrhea, unspecified; N92.0 Excessive and frequent menstruation with regular cycle
CPT/HCPCS: 76830